=== PATIENT | female | born 1965 | race Caucasian/White ===

== ENCOUNTER → 2020-11-19 | Outpatient (CLI) | payer OTHER | LOC: M.LAB 08:28 | PROVIDERS: ATTEND Podiatrist Foot & Ankle Surgery | DX: Z01.812 Encounter for preprocedural laboratory examination (principal); Z20.822 Contact with and (suspected) exposure to COVID-19 ==

== ENCOUNTER → 2021-05-21 | Outpatient (CLI) | payer OTHER | LOC: M.LAB 07:49 | PROVIDERS: ATTEND Podiatrist Foot & Ankle Surgery | DX: Z01.812 Encounter for preprocedural laboratory examination (principal); Z20.822 Contact with and (suspected) exposure to COVID-19 ==